=== PATIENT | male | born 1955 | race Caucasian/White ===

== ENCOUNTER 2024-12-13 07:54 | Day surgery (SDC) | payer BC, MEDICARE ==
[~2024-12-13] VITALS: Ht 185.4 cm; Wt 81.8 kg
[~2024-12-13 07:54] MED LIST: ASPIRIN EC325 MG PO; CEFAZOLIN SODIUM 2 GM/20 ML SYR IV SCH; CELECOXIB200 MG PO; CLARITIN10 MG PO; FINASTERIDE5 MG PO; FLAGYL500 MG PO; HYDROCODON-ACE1 EA11 PO; IBLOOD GLUCOSE TEST STRIP 1 EA TEST VI PRN; LACTATED RINGER'S 1,000 ML IV SCH; LIDOCAINE HCL 1% 5 ML SDV INJ ONE; NORCO 5-325 TA1 EACH PO
[2024-12-13] MEDS ORDERED: ondansetron HCL 4 MG/2 ML VIAL ONE (08:21)
[2024-12-13] MEDS ORDERED: DEXAMETHASONE SOD PHOS 4 MG/ML VIAL ONE ×2 (08:21→08:23)
[2024-12-13] MEDS ORDERED: KETOROLAC TROMETHAMINE 30 MG/ML VIAL ONE (08:21)
[2024-12-13] MEDS ORDERED: propofoL 200 MG/20 ML VIAL ONE ×2 (08:21→08:34)
[2024-12-13 08:22] VITALS: BP 121/75
[2024-12-13] MEDS ORDERED: SODIUM CHLORIDE 0.9% 20 ML IV ONE (08:22)
[2024-12-13] MEDS ORDERED: LIDOCAINE HCL 2% 5 ML SDV ONE ×3 (08:22→09:24)
[2024-12-13] MEDS ORDERED: Ropivacaine HCl 0.5% 30 ML VIAL ONE (08:22)
[2024-12-13] MEDS ORDERED: dexmedeTOMIDine HCl 200 MCG/2 ML VIAL ONE (08:30)
[2024-12-13] MEDS ORDERED: DICLOFENAC SOD 75 MG TABEC PO SCH (09:00)
[2024-12-13] MEDS ORDERED: ASPIRIN 325 MG TAB PO SCH (09:00)
[2024-12-13] MEDS ORDERED: SENNOSIDES 1 TAB PO SCH (09:00)
[2024-12-13] MEDS ORDERED: HYDROCODONE/ACETA 7.5/325 TAB PO PRN (09:00)
[2024-12-13] MEDS ORDERED: KETOROLAC TROMETHAMINE 15 MG/ML VIAL IV PRN (09:00)
[2024-12-13] MEDS ORDERED: GABAPENTIN 300 MG CAP PO SCH (09:00)
[2024-12-13] MEDS ORDERED: HYDROCODON-ACE1 EA11 PO (10:29)
[2024-12-13] MEDS ORDERED: SENNA LAX8.6 MG PO (10:29)
[2024-12-13] MEDS ORDERED: ASPIRIN325 MG PO (10:29)
--- NOTE | 2024-12-13 10:38 | NUR ---
12/13/24 Ann Marie Reinoso 1031-PATIENT ARRIVED TO PACU ON 6L MASK RR EVEN. NONAROUSABLE SINUS BRADYCARDIA HR UPPER 50'S IVF INFUSING. LEFT LEG IN BOOT ELEVATED ON PILLOW GOOD CAP REFILL AND WARMTH. ICE APPLIED.
[2024-12-13] MEDS ORDERED: fentaNYL citrate 50 MCG/ML SDV IV PRN (10:45)
[2024-12-13] MEDS ORDERED: NALOXONE HCL 0.4 MG SYR IV PRN (10:45)
[2024-12-13] MEDS ORDERED: IBLOOD GLUCOSE TEST STRIP 1 EA TEST VI PRN (10:45)
[2024-12-13] MEDS ORDERED: ondansetron HCL 4 MG/2 ML VIAL IV PRN (10:45)
[2024-12-13 11:15] VITALS: BP 96/64
--- NOTE | 2024-12-13 11:15 | NUR ---
PT ARRIVES TO DS DEPT FROM PACU VIA STRETCHER. PT REPORTS NO PAIN OR NAUSEA AT THIS TIME. HOB ELEVATED AT PT REQUEST. PT TOLERATING SIPS OF ICE WATER AND COFFEE WITHOUT DIFFICULTY. PT RESPIRATIONS EVEN AND UNLABORED, NO SIGNS OF DISTRESS. CALL LIGHT WITHIN REACH. REPORT RECEIVED FROM PHANI GR W/ AT BEDSIDE. PT ABLE TO SLIGHTLY MOVE RT FOOT. PT AND PT REPORT NO FURTHER NEEDS OR QUESTIONS AT THIS TIME.
[2024-12-13] MEDS ORDERED: DICLOFENAC SOD 75 MG TABEC ONE (11:39)
[2024-12-13] MEDS ORDERED: SENNOSIDES 1 TAB ONE (11:40)
--- NOTE | 2024-12-13 12:15 | NUR ---
SARA W/PHYSICAL THERAPY IN ROOM W/PT AT THIS TIME FOR FIRST ATTEMPT AT PHYSICAL THERAPY. PER SARA, PT UNABLE TO SAFELY PERFORM PHYSICAL THERAPY AT THIS TIME D/T WEAKNESS. SHE WILL COME BACK IN AN HOUR TO SEE IF PT HAS IMPROVED. PT DENIES DESIRE FOR FOOD AT THIS TIME. CALL LIGHT WITHIN REACH, PT STATES NO FURTHER NEEDS AT THIS TIME.
[2024-12-13 12:16] VITALS: BP 118/86
[2024-12-13 13:33] VITALS: BP 137/85
--- NOTE | 2024-12-13 13:35 | NUR ---
SARA Abbasi/PHYSICAL THERAPY IN ROOM AT THIS TIME FOR 2ND ATTEMPT. PT GAIT HAS IMPROVED, SEE PHYSICAL THERAPY EVAL.
--- NOTE | 2024-12-13 14:05 | NUR ---
PT AMBULATES SELF TO BATHROOOM VIA FWW, THIS RN WITH WC BEHIND PT, AND [employer] W/GAIT BELT AT PT SIDE. PT HAS TO STOP X1 FOR BREAK TO SIT IN WC D/T LFT HIP PAIN. PT URINE VOIDS 400 ML OF CLEAR/YELLOW URINE. PT BACK TO ROOM AND IN BED AT THIS TIME.
--- NOTE | 2024-12-13 14:45 | NUR ---
PT IN BED AND PT TRYING TO FIND ASSISTANCE TO GET PT UP FEW STAIRS INTO HOUSE. PT REPORTS NO FURTHER NEEDS OR QUESTIONS AT THIS TIME. CALL LIGHT WITHIN REACH.
[2024-12-13 15:10] VITALS: BP 139/78
--- NOTE | 2024-12-13 15:10 | NUR ---
IN PT ROOM FOR DC EDUCATION. PT AND PT STATE VERBAL UNDERSTANDING AND NO FURTHER QUESTIONS OR NEEDS AT THIS TIME. PT OFF OF UNIT VIA WC TO PASSENGER SIDE OF VEHICLE. ICE PACK BAG PROVIDED. ALL BELONGINGS IN PT POSSESSION. PT REPORTS NO FURTHER NEEDS AT THIS TIME.
--- NOTE | 2024-12-14 06:56 | OR ---
[facility] [address] [place], [place] [address] Signed DATE OF OPERATION: 12/13/2024 SURGEON: Edita Fletcher MD PREOPERATIVE DIAGNOSIS: Achilles tendon tear, left. POSTOPERATIVE DIAGNOSIS: Achilles tendon tear, left. PROCEDURE PERFORMED: Achilles tendon repair, left. LOGISTICS ASSOCIATE: Concepción Torres PA-C. Concepción was present and critical for all portions of procedure. ANESTHESIA: Spinal. BLOOD LOSS: TOURNIQUET TIME: 41 minute. BRIEF HISTORY: Troy is a 69-year-old gentleman who tripped and rolled his ankle and felt a pop in the back of his foot. MRI was consistent with a complete rupture of the Achilles tendon. Risks and benefits of operative treatment were discussed with him. He elected to proceed. DESCRIPTION OF PROCEDURE: Once consent was obtained, he was taken to the operating room. After adequate anesthesia, he was rolled in the prone position on chest bones. All downside pressure points were well padded. His arms were placed in a protected position. The left leg was placed in a well-padded proximal thigh tourniquet, prepped and draped in a standard sterile fashion. The leg was exsanguinated using Esmarch bandage. Tourniquet inflated to 250 mmHg. The tear was palpated and a 2 inch incision was made and centered over it. This was extended slightly proximally. The paratenon was then identified and dissected Electronically Signed By: EDITA FLETCHER MD 12/14/24 0656 PATIENT NAME: TROY CARDONA OPERATIVE REPORT DATE OF : 55 REPORT #: [id number] PHYSICIAN: EDITA FLETCHER MD PCP: SITVEN LECHUGA MD REPORT IS CONFIDENTIAL AND NOT TO BE RELEASED WITHOUT AUTHORIZATION [facility] [address] [place], [place] [address] Signed free of overlying soft tissue was then split longitudinally. The distal stump was about 2 inches long. The proximal stump was retracted about 2 to 3 inches. The proximal stump was carefully mobilized using a tenotomy scissors and digital debridement. We were able to mobilize the back down into position. We then placed the ring forcep about 3 inches proximally on the Achilles tendon and percutaneously placed four #5 FiberWire sutures through this. We then used the ring forceps to bring all strands of the suture down into the wound. Four more were placed on the distal side with excellent purchase in the tissue. We were able then to place the foot into a plantar position and tie all four sutures together reapproximating the tendon in an excellent position. The wound was copiously irrigated with normal saline and the paratenon was repaired using #2 Monocryl. The subcutaneous tissue with 2-0 Monocryl and the skin with 3-0 Stratafix. The wound was then dressed with Allevyn dressing and gauze and an Tadeo wrap. He was placed back into his fracture boot with three wedges. He was awakened, taken to the recovery room in satisfactory condition. All sponge, needle, and instrument counts were correct. Edita Fletcher MD BA/MODL /[id number] Copies: ~ Electronically Signed By: EDITA FLETCHER MD 12/14/24 0656 PATIENT NAME: TROY CARDONA REBECCA OPERATIVE REPORT DATE OF : 55 REPORT #: [id number] PHYSICIAN: EDITA FLETCHER MD PCP: STIVEN LECHUGA MD REPORT IS CONFIDENTIAL AND NOT TO BE RELEASED WITHOUT AUTHORIZATION
== END 2024-12-13 15:20 | disposition home or self-care (01) ==
LOC: DS 07:54
PROVIDERS: ATTEND Specialist
PROC: 0LQP0ZZ Repair Left Lower Leg Tendon, Open Approach (ICD-10-PCS; principal; 2024-12-13 10:00)
DX: S86.012A Strain of left Achilles tendon, initial encounter (principal); Z88.8 Allergy status to other drugs, medicaments and biological substances; Z79.899 Other long term (current) drug therapy; X58.XXXA Exposure to other specified factors, initial encounter
CPT/HCPCS: 01472; 64445; 76942; 97161; 97530; A9270; J0690; J1100; J1885; J2003; J2405; J2704; J2795; J7121